=== PATIENT | female | born 1965 | race Caucasian/White ===

== ENCOUNTER → 2023-12-20 14:25 | Outpatient (REF) | payer BC, SELFPAY | LOC: DHCBC HW 14:25 | PROVIDERS: ATTENDING PHYSICIAN Internal Medicine; FAMILY PHYSICIAN Family Medicine | DX: E78.01 Familial hypercholesterolemia (principal); I10 Essential (primary) hypertension; R00.2 Palpitations | CPT/HCPCS: 93306 ==

== ENCOUNTER → 2024-09-03 09:10 | Outpatient (REF) | payer BC, SELFPAY | LOC: HWRAD 09:10 | PROVIDERS: ATTENDING PHYSICIAN Family Medicine | DX: R19.01 Right upper quadrant abdominal swelling, mass and lump (principal) | CPT/HCPCS: 76700 ==

== ENCOUNTER → 2025-02-05 10:56 | Outpatient (REF) | payer OTHER, SELFPAY | LOC: HWRAD 10:56 | PROVIDERS: ATTENDING PHYSICIAN Family Medicine | DX: R26.89 Other abnormalities of gait and mobility (principal); H93.13 Tinnitus, bilateral; R61 Generalized hyperhidrosis | CPT/HCPCS: 70450 ==

== ENCOUNTER → 2025-03-26 11:55 | Outpatient (REF) | payer OTHER, SELFPAY | LOC: DHSLP 11:55 | PROVIDERS: ATTENDING PHYSICIAN Family Medicine | DX: G47.33 Obstructive sleep apnea (adult) (pediatric) (principal); R06.83 Snoring | CPT/HCPCS: 95806 ==

== ENCOUNTER → 2025-06-09 07:15 | Outpatient (REF) | payer OTHER, SELFPAY | LOC: PAVMRI 07:15 | PROVIDERS: ATTENDING PHYSICIAN Family Medicine | DX: R25.1 Tremor, unspecified (principal); F68.8 Other specified disorders of adult personality and behavior; R29.898 Other symptoms and signs involving the musculoskeletal system; M62.81 Muscle weakness (generalized); R26.89 Other abnormalities of gait and mobility | CPT/HCPCS: 70551 ==